=== PATIENT | male | born 1970 | race American Indian/Alaskan Native ===

== ENCOUNTER 2019-01-10 07:00 | Day surgery (SDC) | payer OTHER ==
[~2019-01-10 07:00] MED LIST: SODIUM CHLORIDE 0.9% 1000 ML 1,000 ML IV SCH
--- NOTE | 2019-01-10 08:03 | Anesthesia Consultation ---
Anesthesia Consult and Med Hx Date of service: 01/10/19 - Airway Anesthetic Teeth Evaluation: Good ROM Head & Neck: Adequate Mental/Hyoid Distance: Adequate Mallampati Class: Class II Intubation Access Assessment: Probably Good - Pulmonary Exam CTA: No - Cardiac Exam Cardiac Exam: No Murmur - Pre-Operative Health Status ASA Pre-Surgery Classification: ASA2 Proposed Anesthetic Plan: MAC - Pulmonary Hx Sleep Apnea: Yes (Does not use his CPAP at night) - Endocrine Hx Liver Disease: Yes (Hyperlipidemia)
--- NOTE | 2019-01-10 08:03 | Anesthesia Day of Surgery ---
Anesthesia Day of Surgery - Day of Surgery Patient Examined: Yes Patient H&P Reviewed: Yes Patient is NPO: Yes Beta Blockers: No
[2019-01-10] MEDS ORDERED: WATER FOR IRRIG STERILE 250 ML BOTTLE IR ONE (08:18)
[2019-01-10] MEDS ORDERED: WATER FOR IRRIG STERILE 1,000 ML BOTTLE ONE (08:19)
[2019-01-10] MEDS ORDERED: PROPOFOL 200 MG/20 ML VIAL IV ONE ×2 (08:23)
[2019-01-10] MEDS ORDERED: LIDOCAINE (1%) 10 MG/1 ML VIAL 20 ML MDV ONE (08:24)
[2019-01-10] MEDS ORDERED: LIDOCAINE MPF (2%) 20 MG/1 ML VIAL 5 ML ONE (08:30)
--- NOTE | 2019-01-10 08:48 | Procedure Note ---
Date of procedure: 01/10/19 Pre-op diagnosis: Colon Polyp Screening Post-op diagnosis: other (Two,Small Colon Polyps one in the Sigmoid and one in the Transverse Colon,removed by cold biopsy)/Minor,Internal Hemorrhoid/No Diverticular Disease noted) Procedure: Colonoscopy with cold biopsy Anesthesia: JAIRON Surgeon: RONEY CARRANZA Estimated blood loss: minimal Pathology: list Specimen disposition: to lab Condition: stable Disposition: same day (Avoid aspirin and NSAID for 4 days, otherwise resume home medication. Follow up in 1 to 2 weeks ([phone]).)
--- NOTE | 2019-01-10 08:52 | Operative Report ---
PROCEDURE: Colonoscopy and biopsy. INDICATIONS: This is a 48-year-old -[place] gentleman who had a colonoscopy done as part of colon polyp screening. DESCRIPTION OF PROCEDURE: Procedure was done after getting informed consent with MAC anesthesia. Initial rectal exam was unremarkable. Instrument was passed through the rectum onto the cecum, which was identified by the ileocecal valve and the appendiceal orifice. The cecum was also viewed on the retroverted manner. No additional pathology was noted. The cecum, ascending colon and most of the transverse colon showed normal mucosa. In the distal transverse colon, there was a small 7-8 mm polyp noted that was removed by cold biopsy. The descending colon showed normal mucosa. In the proximal sigmoid, there was also another 7-8 mm polyp that was again removed by cold biopsy. There was minimal bleeding from the polypectomy site. The remaining part of the sigmoid and the rectum showed normal mucosa and the rectum showed minor internal hemorrhoid on the retroverted view. Visualization was fair to good. There is minimal bleeding from the polypectomy site and no complications associated with the procedure. Procedure was done in the GI lab with assistance of the GI lab team, which included the GI lab nurseCa Saundra and with assistance of anesthesia. ASSESSMENT: Colon polyp screening. Two small colon polyps noted, one in the sigmoid and one in the transverse. Minor internal hemorrhoid. No diverticular disease. Again, there was minimal bleeding associated with the polypectomy, but no complications associated with the procedure. The patient will be asked to avoid aspirin and aspirin-related products for the next few days. Otherwise, resume home medication and follow up in the office in 1-2 weeks' time. JOB# [id number] KONRAD/SHENG
[2019-01-10 09:10] VITALS: BP 111/86
--- NOTE | 2019-01-10 10:24 | Post Anesthesia Evaluation ---
- Post Anesthesia Evaluation Patient Participated: Yes Airway Patent: Yes Stable Respiratory Function: Yes Nausea/Vomiting: No Temp > 96.8F: Yes Pain Manageable: Yes Adequeate Hydration: Yes Anesthesia Complications: No
== END 2019-01-10 07:01 | disposition home or self-care (01) ==
LOC: GIO 07:00
DX: Z12.11 Encounter for screening for malignant neoplasm of colon (principal); K63.5 Polyp of colon; K64.8 Other hemorrhoids; E78.00 Pure hypercholesterolemia, unspecified; G47.30 Sleep apnea, unspecified; E78.5 Hyperlipidemia, unspecified; Z79.899 Other long term (current) drug therapy
CPT/HCPCS: 45380; 88305; J2704; J7030